=== PATIENT | female | born 1980 | race African-American/Black ===

== ENCOUNTER 2017-04-04 18:05 | Emergency (ER) | payer OTHER ==
[~2017-04-04] VITALS: Ht 165.1 cm; Wt 90.7 kg
[2017-04-04 18:53] VITALS: BP 154/97
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
[2017-04-04] MEDS ORDERED: ACETAMINOPHEN 325 MG TABLET. PO ONE (19:00)
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
== END 2017-04-04 19:45 | disposition home or self-care (01) ==
LOC: ER 18:05
DX: S16.1XXA Strain of muscle, fascia and tendon at neck level, initial encounter (principal); S29.012A Strain of muscle and tendon of back wall of thorax, initial encounter; S39.012A Strain of muscle, fascia and tendon of lower back, initial encounter; J45.909 Unspecified asthma, uncomplicated; V43.52XA Car driver injured in collision with other type car in traffic accident, initial encounter; Y93.I9 Activity, other involving external motion; Y92.410 Unspecified street and highway as the place of occurrence of the external cause; Y99.8 Other external cause status
CPT/HCPCS: 72040; 72072; 72100; 99284